=== PATIENT | female | born 1940 | race Caucasian/White ===

== ENCOUNTER 2019-06-19 12:43 | Emergency (ER) | payer OTHER ==
[2019-06-19 12:49] VITALS: BMI 42.4
--- NOTE | 2019-06-19 12:55 | PDOC ---
History of Present Illness - General Chief Complaint: Allergic Reaction Stated Complaint: ALLERGIC REACTION Time Seen by Provider: 06/19/19 12:54 History Source: Patient Exam Limitations: No Limitations - History of Present Illness Initial Comments: 78 yo F history GERD presents with lip swelling, hoarse voice, and rash after taking first dose of levaquin. She was recently treated for UTI, failed first treatment. She was given levaquin by PMD, which she had not taken in the past. Denies difficulty breathing, cp, difficulty swallowing. She is tolerating her secretions. Past History - Past Medical History Allergies/Adverse Reactions: Allergies Allergy/AdvReac Type Severity Reaction Status Date / Time amoxicillin trihydrate Allergy Rash Verified 06/19/19 12:48 [From Augmentin] potassium clavulanate Allergy Rash Verified 06/19/19 12:48 [From Augmentin] Home Medications: Ambulatory Orders Omeprazole [Prilosec (RX)] 20 mg PO DAILY 11/23/13 Anemia: No Asthma: No Cancer: No Cardiac Disorders: No CVA: No COPD: No CHF: No Dementia: No Diabetes: No GI Disorders: No Disorders: No HTN: Yes Hypercholesterolemia: Yes Liver Disease: No Seizures: No Thyroid Disease: No Other medical history: chronic uti - Suicide/Smoking/Psychosocial Hx Smoking History: Current every day smoker Have you smoked in the past 12 months: Yes Number of Cigarettes Smoked Daily: 1 Information on smoking cessation initiated: No 'Breaking Loose' booklet given: 09/22/14 Hx Alcohol Use: No Drug/Substance Use Hx: No Substance Use Type: None Hx Substance Use Treatment: No Review of Systems - Review of Systems Able to Perform ROS?: Yes Comments:: GENERAL/CONSTITUTIONAL: No fever or chills. No weakness. HEAD, EYES, EARS, NOSE AND THROAT: No change in vision. No ear pain or discharge. +Throat irritation. +Lower lip swelling CARDIOVASCULAR: No chest pain or shortness of breath. RESPIRATORY: No cough, wheezing, or hemoptysis. GASTROINTESTINAL: No nausea, vomiting, diarrhea or constipation. GENITOURINARY: No dysuria, frequency, or change in urination. MUSCULOSKELETAL: No joint or muscle swelling or pain. No neck or back pain. SKIN: No rash. NEUROLOGIC: No headache, vertigo, loss of consciousness, or change in strength/ sensation. ENDOCRINE: No increased thirst. No abnormal weight change. HEMATOLOGIC/LYMPHATIC: No anemia, easy bleeding, or history of blood clots. ALLERGIC/IMMUNOLOGIC: +Hives *Physical Exam - Vital Signs Last Vital Signs Temp Pulse Resp BP Pulse Ox 97.8 F 113 H 24 H 108/66 93 L 06/19/19 12:45 06/19/19 12:45 06/19/19 12:45 06/19/19 12:45 06/19/19 12:45 - Physical Exam Comments: GENERAL: Awake, alert, and fully oriented, in no acute distress HEAD: No signs of trauma EYES: PERRLA, EOMI, sclera anicteric, conjunctiva clear ENT: Auricles normal inspection, hearing grossly normal, nares patent, oropharynx clear without exudates. Moist mucosa. +Mild swelling of lower lip NECK: Normal ROM, supple, no lymphadenopathy, JVD, or masses LUNGS: Breath sounds equal, clear to auscultation bilaterally. No wheezes, and no crackles HEART: Regular rate and rhythm, normal S1 and S2, no murmurs, rubs or gallops ABDOMEN: Soft, nontender, normoactive bowel sounds. No guarding, no rebound. No masses EXTREMITIES: Normal range of motion, no edema. No clubbing or cyanosis. No cords, erythema, or tenderness NEUROLOGICAL: Cranial nerves II through XII grossly intact. Normal speech, normal gait. Motor and sensation intact SKIN: Warm, dry, normal turgor. +Few scattered patches of urticarial rash to limbs. ED Treatment Course - LABORATORY CBC & Chemistry Diagram: 06/19/19 13:11 06/19/19 13:11 Medical Decision Making - Medical Decision Making 06/19/19 13:49 Airway patent on exam. Likely allergic reaction to levaquin. Will give benadryl and steroids. Epinephrine not indicated at this time. Will monitor in the ED for improvement. 06/19/19 14:17 Pt reports improvement in rash and voice. Will cont to monitor. 06/19/19 16:27 Discussion with patient at bedside. Counseled her to stop the levaquin, as it appears to be the source of the reaction. Will have her f/u with her PMD for antibiotic change tomorrow, as they have prior culture. Will send UA/UCx in ED so they can call for comparison in 2 days if needed. *DC/Admit/Observation/Transfer Diagnosis at time of Disposition: Allergic reaction caused by a drug Qualifiers: Encounter type: initial encounter Qualified Code(s): T78.40XA - Allergy, unspecified, initial encounter - Discharge Dispostion Disposition: HOME Condition at time of disposition: Stable Decision to Admit order: No - Referrals Referrals: Phillip Gómez [Primary Care Provider] - - Patient Instructions Printed Discharge Instructions: DI for Adverse Drug Reaction -- Allergic - Post Discharge Activity
[2019-06-19] MEDS ORDERED: methylPREDNISolone NA SUCC 125 MG/2 ML VIAL IVPB ONE (12:58)
[2019-06-19] MEDS ORDERED: SODIUM CHLORIDE 1,000 ML IV STA (12:59)
[2019-06-19] MEDS ORDERED: methylPREDNISolone NA SUCC 125 MG/2 ML VIAL ONE (13:06)
[2019-06-19 13:23] LABS: BASO % 0.4 % (0-2.0); EOS % 1.2 % (0-4.5); HEMATOCRIT 35.6 % (32.4-45.2); LYMPH % 28.5 % (8-40); MCHC 33.7 g/dl (32.0-36.0); MEAN CELL VOLUME 97.9 fl (80-96); MEAN PLT VOLUME 8.7 fl (7.5-11.1); MONO % 9.4 % (3.8-10.2); NEUT % 60.5 % (42.8-82.8); PLATELET COUNT 252 K/MM3 (134-434); RBC 3.63 M/mm3 (3.60-5.2); RDW 14.1 % (11.6-15.6); WHITE BLOOD COUNT 6.9 K/mm3 (4.0-10.0)
[2019-06-19 13:51] LABS: ALBUMIN 3.7 g/dl (3.4-5.0); BILIRUBIN,TOTAL 0.4 mg/dL (0.2-1); BLOOD UREA NITROGEN 32.2 mg/dL (7-18); CALCIUM 10.6 mg/dL (8.5-10.1); CREATININE 1.4 mg/dL (0.55-1.3); POTASSIUM 4.3 mmol/L (3.5-5.1); TOT PROT 6.9 g/dl (6.4-8.2)
[2019-06-19 17:17] VITALS: BP 103/65; PULSE 80; TEMP 97.7
== END 2019-06-19 17:20 | disposition home or self-care (01) ==
LOC: JER 12:43
PROC: 3E0337Z Introduction of Electrolytic and Water Balance Substance into Peripheral Vein, Percutaneous Approach (ICD-10-PCS; principal; 2019-06-19)
PROC: 3E0333Z Introduction of Anti-inflammatory into Peripheral Vein, Percutaneous Approach (ICD-10-PCS; 2019-06-19)
PROC: 3E033GC Introduction of Other Therapeutic Substance into Peripheral Vein, Percutaneous Approach (ICD-10-PCS; 2019-06-19)
DX: L27.0 Generalized skin eruption due to drugs and medicaments taken internally (principal); T36.8X5A Adverse effect of other systemic antibiotics, initial encounter; Y92.038 Other place in apartment as the place of occurrence of the external cause
CPT/HCPCS: 36415; 80053; 85025; 87077; 87086; 96361; 96374; 96375; 99283-25; J7030

== ENCOUNTER 2019-10-03 17:17 | Inpatient (IN) | payer OTHER ==
--- NOTE | 2019-10-03 17:32 | PDOC ---
Rapid Medical Evaluation Medical Evaluation: Allergies Allergy/AdvReac Type Severity Reaction Status Date / Time amoxicillin trihydrate Allergy Rash Verified 06/19/19 12:48 [From Augmentin] potassium clavulanate Allergy Rash Verified 06/19/19 12:48 [From Augmentin] I have performed a brief in-person evaluation of this patient. The patient presents with a chief complaint of: generalized weakness and lightheaded for a few days; had flu-like sxs around [place]; went to urgent care last week and was noted to have low BP; she followed up 1/3 and got results today and was told her sodium was low (127); patient went to [facility] today and had repeat BP done which was low (80/60); denies cp, sob Pertinent physical exam findings: In NAD I have ordered the following: labs, EKG The patient will proceed to the ED for further evaluation. 10/03/19 17:28
--- NOTE | 2019-10-03 18:07 | PDOC ---
History of Present Illness - General Chief Complaint: Weakness Stated Complaint: WEAKNESS/EVALUATION Time Seen by Provider: 10/03/19 17:27 History Source: Patient Exam Limitations: No Limitations - History of Present Illness Initial Comments: 10/03/19 18:07 79yF w HTN HLD hypercalcemia presenting w malaise, poor appetite, pyuria, hypotension. Having generalized malaise, poor appetite - gagging with solid foods since 07/28/19 when pt had lower teeth removed without any dentures. Also endorsed pyuria for last 3mo, no workup/treatment by PCP. Last week went to urgent care, noted to have low BP and hyponatremia 127, stopped all HTN meds. Today went to [facility], repeat BP showed BP 80/60. Denies fever, nausea/vomiting , cough, chest pain/SOB, diarrhea/constipation. Allergy to augmentin is hives Past History - Past Medical History Allergies/Adverse Reactions: Allergies Allergy/AdvReac Type Severity Reaction Status Date / Time amoxicillin trihydrate Allergy Rash Verified 10/03/19 17:31 [From Augmentin] levofloxacin [From Levaquin] Allergy Verified 10/03/19 17:31 potassium clavulanate Allergy Rash Verified 10/03/19 17:31 [From Augmentin] Home Medications: Ambulatory Orders Atorvastatin Calcium 20 mg PO DAILY 10/03/19 Ergocalciferol (Vitamin D2) [Vitamin D2] 2,000 unit PO DAILY 10/03/19 Anemia: No Asthma: No Cancer: No Cardiac Disorders: No CVA: No COPD: No CHF: No Dementia: No Diabetes: No GI Disorders: No Disorders: No HTN: Yes Hypercholesterolemia: Yes Liver Disease: No Seizures: No Thyroid Disease: No - Psycho Social/Smoking Cessation Hx Smoking History: Former smoker Have you smoked in the past 12 months: No Number of Cigarettes Smoked Daily: 1 If you are a former smoker, when did you quit?: 3 WEEKS AGO Information on smoking cessation initiated: No 'Breaking Loose' booklet given: 09/22/14 Hx Alcohol Use: No Drug/Substance Use Hx: No Substance Use Type: None Hx Substance Use Treatment: No Review of Systems - Review of Systems Constitutional: No: Chills, Fever HEENTM: No: Eye Pain, Nose Pain, Nose Congestion, Throat Pain, Mouth Pain Respiratory: No: Cough, Shortness of Breath Cardiac (ROS): No: Chest Pain, Palpitations, Syncope ABD/GI: No: Abdominal Distended, Constipated, Diarrhea, Nausea, Vomiting : Yes: Burning, Hematuria. No: Dysuria, Discharge Musculoskeletal: No: Back Pain, Joint Pain, Joint Stiffness Integumentary: No: Bruising, Flushing, Lesions Neurological: No: Headache, Seizure, Tingling Psychiatric: No: Anxiety, Depression, Stressors Endocrine: No: Excessive Sweating, Flushing, Intolerance to Cold, Intolerance to Heat Hematologic/Lymphatic: No: Anemia, Blood Clots *Physical Exam - Vital Signs Last Vital Signs Temp Pulse Resp BP Pulse Ox 98.3 F 90 16 137/62 98 10/03/19 17:20 10/03/19 17:20 10/03/19 17:20 10/03/19 17:20 10/03/19 17:20 - Physical Exam General Appearance: Yes: Nourished, Appropriately Dressed, Mild Distress HEENT: positive: EOMI, MATTY, Normal Voice, Hearing Grossly Normal. negative: Scleral Icterus (R), Scleral Icterus (L), Nasal Congestion, Rhinorrhea Respiratory/Chest: positive: Lungs Clear, Normal Breath Sounds. negative: Chest Tender, Respiratory Distress, Crackles, Rales, Rhonchi, Stridor, Wheezing Cardiovascular: positive: Regular Rhythm, Regular Rate, S1, S2. negative: Edema , Murmur Gastrointestinal/Abdominal: positive: Normal Bowel Sounds, Flat, Soft. negative : Tender, Organomegaly Musculoskeletal: negative: CVA Tenderness (R), CVA Tenderness (L) Extremity: positive: Delayed Capillary Refill Integumentary: positive: Normal Color, Dry Neurologic: positive: Fully Oriented, Alert, Normal Response, Responsive. negative: Sensory Deficit, Confused, Disoriented ED Treatment Course - LABORATORY CBC & Chemistry Diagram: 10/03/19 18:03 10/03/19 18:03 Medical Decision Making - Medical Decision Making 10/03/19 19:11 EKG NSR, L axis deviation, HR 96, QTc 401, no ST changes --- 79yF w HTN HLD hypercalcemia presenting w 3mo generalized malaise, poor appetite w solid foods, pyuria 2/2 UTI. Also hypovolemic hyponatremia Na 121. Pt is mildly dehydrated despite tolerating PO fluids. Cr 1.6 (baseline 1.4 05/2019), normal BP 137/67. Low concern for PNA (clear lung sounds) vs ACS (NSR EKG, neg trop) Given 1L NS, rocephin Admitted m/s Dr Alba for hyponatremia, UTI Discharge - Discharge Information Problems reviewed: Yes Clinical Impression/Diagnosis: Hyponatremia UTI (urinary tract infection) Qualifiers: Urinary tract infection type: acute cystitis Hematuria presence: without hematuria Qualified Code(s): N30.00 - Acute cystitis without hematuria - Follow up/Referral Referrals: ON STAFF,NOT [Primary Care Provider] - - Patient Discharge Instructions - Post Discharge Activity
[2019-10-03 18:18] LABS: BASO % 0.4 % (0-2.0); EOS % 0.9 % (0-4.5); HEMATOCRIT 33.6 % (32.4-45.2); HEMOGLOBIN 11.3 GM/dL (10.7-15.3); LYMPH % 11.2 % (8-40); MCH 31.2 pg (25.7-33.7); MCHC 33.5 g/dl (32.0-36.0); MEAN CELL VOLUME 92.9 fl (80-96); MEAN PLT VOLUME 7.5 fl (7.5-11.1); MONO % 10.9 % (3.8-10.2); NEUT % 76.6 % (42.8-82.8); PLATELET COUNT 298 K/MM3 (134-434); RBC 3.62 M/mm3 (3.60-5.2); RDW 13.6 % (11.6-15.6); WHITE BLOOD COUNT 10.6 K/mm3 (4.0-10.0)
[2019-10-03 18:28] LABS: EPI CELLS 2.9 /HPF (0-5/HPF); HYALINE CASTS 4 /lpf (0-8); PH,URINE 5.5 (5.0-8.0); URINE APPEARANCE CLOUDY; URINE BACTERIA 97.5 /hpf (NEGATIVE); URINE BILIRUBIN NEGATIVE (NEGATIVE); URINE COLOR YELLOW; URINE GLUCOSE (UA) NEGATIVE (NEGATIVE); URINE KETONE NEGATIVE (NEGATIVE); URINE LEUK ESTERASE 2+ (NEGATIVE); URINE NITRITE NEGATIVE (NEGATIVE); URINE PROTEIN 1+ (NEGATIVE); URINE RBC 1 /hpf (0-4); URINE UROBILINOGEN 0.2 mg/dL (0.2-1.0); URINE WBC 41 /hpf (0-5)
[2019-10-03 18:48] LABS: ALBUMIN 3.3 g/dl (3.4-5.0); BILIRUBIN,TOTAL 0.3 mg/dL (0.2-1); BLOOD UREA NITROGEN 33.8 mg/dL (7-18); CALCIUM 9.9 mg/dL (8.5-10.1); CREATININE 1.6 mg/dL (0.55-1.3); MAGNESIUM 1.1 mg/dL (1.8-2.4); POTASSIUM 4.3 mmol/L (3.5-5.1); TOT PROT 6.9 g/dl (6.4-8.2)
[2019-10-03] MEDS ORDERED: SODIUM CHLORIDE 0.9% 500 ML INFUS.BAG IV ONE (18:52)
[2019-10-03] MEDS ORDERED: CEFTRIAXONE 1,000 MG in DEXTROSE 5%-WATER - 50 ML IVPB ONE (19:03)
[2019-10-03] MEDS ORDERED: CEFTRIAXONE 1 GM/50 ML BAG ONE (19:39)
--- NOTE | 2019-10-03 20:03 | PN ---
Teaching Attending Note Name of Resident: Marlin Correia ATTENDING PHYSICIAN STATEMENT I saw and evaluated the patient. I reviewed the resident's note and discussed the case with the resident. I agree with the resident's findings and plan as documented. SUBJECTIVE: Patient is a 79 year old woman with a PMH of HTN, GERD, HLD, ?Atrophic kidney, Tobacco use and Hypercalcemia presenting with malaise, poor appetite, pyuria and hypotension. Having generalized malaise, poor appetite - gagging with solid foods since 07/28/19 when patient had lower teeth removed without any dentures. Also has had pyuria for last 3 months - ?no workup/treatment by PCP. Had been advised to drink lots of water for hypercalcemia by her analytics consultant. Being worked up for hypercalcemia/hyperparathyroidism. Was also on Lisinopril/HCTZ. Last week went to an Urgent [facility] and noted to have low BP and hyponatremia 127 - all antihypertensive medications were stopped. Today she went to [facility], repeat BP showed BP 80/60. Denies fever, nausea, vomiting, cough, chest pain, SOB, diarrhea or constipation. Allergy to augmentin is hives. No recent travel or sick contacts. Denies alcohol or illicit drug use. OBJECTIVE: Alert Vital Signs Period Temp Pulse Resp BP Sys/Giron Pulse Ox Last 24 Hr 98.3 F 90 16 137/62 98 HEENT: No Jaundice, eye redness or discharge, PERRLA, EOMI. Normocephalic, atraumatic. External ears are normal and hearing is grossly intact. No nasal discharge. Neck: Supple, nontender. No palpable adenopathy or thyromegaly. No JVD Chest: Good effort. Clear to auscultation and percussion. Heart: Regular. No S3, rub or murmur Abdomen: Not distended, soft, nontender and no HSM. No rebound or guarding. Normal bowel sounds. Ext: Peripheral pulses intact. No leg edema. Skin: Warm and dry. No petechiae, rash or ecchymosis. Neuro: Alert. Oriented x3. CN 2-12 grossly intact. Sensation grossly intact in all four extremities and DTR are symmetric. Psych: Appropriate mood and affect. Good insight. Home Medications Medication Instructions Recorded Atorvastatin Calcium 20 mg PO DAILY 10/03/19 Ergocalciferol (Vitamin D2) 2,000 unit PO DAILY 10/03/19 [Vitamin D2] Abnormal Lab Results 10/03/19 10/03/19 10/03/19 18:03 18:03 18:03 WBC 10.6 H Absolute Neuts (auto) 8.1 H Monocytes % 10.9 H Sodium 121 L Chloride 91 L Carbon Dioxide 18 L BUN 33.8 H Creatinine 1.6 H Random Glucose 121 H Magnesium 1.1 L Albumin 3.3 L Ur Specific Pierce 1.006 L Urine Protein 1+ H Urine Blood 1+ H Ur Leukocyte Esterase 2+ H ASSESSMENT AND PLAN: 1. UTI/Hyponatremia - Being treated with IV Aztreonam for UTI pending culture report. Hyponatremia likely partly due to continued ingestion of lots of free water and recent poor solute intake - thus not enough solute for obligatory free water excretion. HCTZ also likely contributed. Will hydrate slowly with IV NS and monitor serum sodium q 4 hours to avoid a rapid rise in serum sodium. Get records from her PCP/analytics consultant to ascertain extent of workup for her hypercalcemia/?hyperparathroidism - -?has she had a parathyroid Sestamibi scan. Consult endocrinology, ID. Consult urology for ?cystoscopy in view of frequent UTIs and pyuria. Will treat with IV MgSO4 for severe hypomagnesemia and check phosphate level and get CXR stat. EKG shows NSR, LAE, anterior and inferior infarct of undetermined age - will repeat EKG and trend troponin. Will continue comprehensive care for all of patients comorbid conditions. 2. Hypoalbuminemia - Possibly due to combined effects of proteinuria, malnutrition and inflammation associated with comorbid chronic conditions. Will ensure adequate dietary protein intake and also consult machine baster. 3. Tobacco Use Counseled on risks associated with tobacco use. We will provide patient all the necessary assistance to facilitate smoking cessation and prescribe Nicotine patch. 4. CKD? - Has risk factors for CKD as well as an ?atrophic kidney. Recent poor oral intake as well bout of hypotension may have exacerbated azotemia. Will get kidney sonogram, phosphate, PTH, urine protein/creatinine ratio, hydrate and monitor urine output. Will consult nephrology and avoid nephrotoxic agents such as NSAIDS, aminoglycosides, contrast dyes and certain Alternative medicine products. 5. Morbid Obesity Counseled on the risks associated with morbid obesity. Will provide patient all the necessary assistance, counseling and positive reinforcement to facilitate weight loss. Consult machine baster. 6. Hypertension - Hold antihypertensive drugs for now. Avoid thiazides. Restart suitable outpatient antihypertensive drugs when clinically appropriate. Revise regimen to ensure [id number] excellent BP control and school counselor patient on the injurious effects of uncontrolled hypertension. Nonpharmacologic measures to control hypertension like weight loss, salt restriction and exercise discussed. Importance of adherence to treatment regimen and attainment of normotension emphasized. 7. DVT prophylaxis - Heparin 5000u sq tid. 8. Advance directives - Full code
--- NOTE | 2019-10-03 20:57 | HP ---
CHIEF COMPLAINT: generalized malaise and recurrent UTIs PCP: Dr Gómez HISTORY OF PRESENT ILLNESS: 79 y/o woman with a PMH of HTN, GERD, HLD, Tobacco use and Hypercalcemia 2/2 hyperparathyroidism presents to ED with malaise, poor appetite, pyuria with urinary symptoms. According to the patient she has been having pyuria associated with dyruria, frequency and urgency since the summer time. She has received treatment 4x-5x for UTI without successful recovery. She finally saw a urologist Dr Richard De La Torre in June, who performed a cystoscopy with unclear findings. She further endorsed recurrence of urinary symptoms as well poor urine output despite her increased water intake recently.Since getting her bottom front teeth removed a couple of months ago, she endorsed poor oral intake with a diet consisting mainly of puree food such as applesauce and yogurt. 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 Today she went to [facility], repeat BP showed BP 80/60 and was told to go the emergency room. Denies fever, vomiting, cough, chest pain, SOB, diarrhea. Allergy to augmentin is hives. No recent travel or sick contacts. Denies alcohol or illicit drug use. ON lisinopril-HTZD combo pill for HTN ER course was notable for: (1) CBC with leukocytosis 10.6, CMP with BUN/Cr 33.8/1.6, mag 1.1, albumin 3.3 (2) UA + with specific gravity 1.006. EKG with NSR, low voltage QRS (3) NS bolus and rocephin. Recent Travel: none PAST MEDICAL HISTORY: as above PAST SURGICAL HISTORY: C section, L arm surgery with metal implant Social History: Smokin PPD 46 yrs quit 1 month Alcohol: social drinker Drugs: denies Allergies amoxicillin trihydrate [From Augmentin] Allergy (Verified 10/03/19 17:31) Rash levofloxacin [From Levaquin] Allergy (Verified 10/03/19 17:31) potassium clavulanate [From Augmentin] Allergy (Verified 10/03/19 17:31) Rash HOME MEDICATIONS: Home Medications Medication Instructions Recorded Atorvastatin Calcium 20 mg PO DAILY 10/03/19 Ergocalciferol (Vitamin D2) 2,000 unit PO DAILY 10/03/19 [Vitamin D2] REVIEW OF SYSTEMS CONSTITUTIONAL: generalized weakness, malaise, loss of appetite Absent: fever, chills, diaphoresis, weight change HEENT: Absent: rhinorrhea, nasal congestion, throat pain, throat swelling, difficulty swallowing, mouth swelling, ear pain, eye pain, visual changes CARDIOVASCULAR: Absent: chest pain, syncope, palpitations, irregular heart rate, lightheadedness , peripheral edema RESPIRATORY: Absent: cough, shortness of breath, dyspnea with exertion, orthopnea, wheezing, stridor, hemoptysis GASTROINTESTINAL: nausea Absent: abdominal pain, abdominal distension, vomiting, diarrhea, constipation, melena, hematochezia GENITOURINARY: dysuria, frequency, urgency Absent: hesitancy, hematuria, flank pain, genital pain MUSCULOSKELETAL: Absent: myalgia, arthralgia, joint swelling, back pain, neck pain SKIN: Absent: rash, itching, pallor HEMATOLOGIC/IMMUNOLOGIC: Absent: easy bleeding, easy bruising, lymphadenopathy, frequent infections ENDOCRINE: Absent: unexplained weight gain, unexplained weight loss, heat intolerance, cold intolerance NEUROLOGIC: Absent: headache, focal weakness or paresthesias, dizziness, unsteady gait, seizure, mental status changes, bladder or bowel incontinence PSYCHIATRIC: Absent: anxiety, depression, suicidal or homicidal ideation, hallucinations. PHYSICAL EXAMINATION Vital Signs - 24 hr 10/03/19 17:20 Temperature 98.3 F Pulse Rate 90 Respiratory 16 Rate Blood Pressure 137/62 O2 Sat by Pulse 98 Oximetry (%) GENERAL: Awake, alert, and fully oriented, in no acute distress. HEAD: Normal with no signs of trauma. EYES: Pupils equal, round and reactive to light, extraocular movements intact, sclera anicteric, conjunctiva clear. No lid lag. EARS, NOSE, THROAT: Ears normal, nares patent, oropharynx clear without exudates. Moist mucous membranes. NECK: Normal range of motion, supple without lymphadenopathy, JVD, or masses. LUNGS: Breath sounds equal, clear to auscultation bilaterally. No wheezes, and no crackles. No accessory muscle use. HEART: Regular rate and rhythm, normal S1 and S2 without murmur, rub or gallop. ABDOMEN: Soft, nontender, not distended, normoactive bowel sounds, no guarding, no rebound, no masses. No hepatomegaly or splenomegaly. MUSCULOSKELETAL: Normal range of motion at all joints. No bony deformities or tenderness. No CVA tenderness. UPPER EXTREMITIES: 2+ pulses, warm, well-perfused. No cyanosis. No clubbing. No peripheral edema. LOWER EXTREMITIES: 2+ pulses, warm, well-perfused. No calf tenderness. trace edema. NEUROLOGICAL: Cranial nerves II-XII intact. Normal speech. motor 5/5 in all muscle groups and sensation intact PSYCHIATRIC: Cooperative. Good eye contact. Appropriate mood and affect. SKIN: Warm, dry, normal turgor, no rashes or lesions noted, normal capillary refill. Laboratory Results - last 24 hr 10/03/19 10/03/19 10/03/19 18:03 18:03 18:03 WBC 10.6 H RBC 3.62 Hgb 11.3 Hct 33.6 MCV 92.9 MCH 31.2 MCHC 33.5 RDW 13.6 Plt Count 298 MPV 7.5 D Absolute Neuts (auto) 8.1 H Neutrophils % 76.6 D Lymphocytes % 11.2 D Monocytes % 10.9 H Eosinophils % 0.9 Basophils % 0.4 Nucleated RBC % 0 Sodium 121 L Potassium 4.3 Chloride 91 L Carbon Dioxide 18 L Anion Gap 11 BUN 33.8 H Creatinine 1.6 H Est GFR (CKD-EPI)AfAm 35.15 Est GFR (CKD-EPI)NonAf 30.33 Random Glucose 121 H Calcium 9.9 Magnesium 1.1 L Total Bilirubin 0.3 AST 15 ALT 20 Alkaline Phosphatase 92 Troponin I < 0.02 Total Protein 6.9 Albumin 3.3 L Urine Color Urine Appearance Urine pH Ur Specific [place] Urine Protein Urine Glucose (UA) Urine Ketones Urine Blood Urine Nitrite Urine Bilirubin Urine Urobilinogen Ur Leukocyte Esterase Urine WBC (Auto) Urine RBC (Auto) Urine Casts (Auto) U Epithel Cells (Auto) Urine Bacteria (Auto) 10/03/19 18:03 WBC RBC Hgb Hct MCV MCH MCHC RDW Plt Count MPV Absolute Neuts (auto) Neutrophils % Lymphocytes % Monocytes % Eosinophils % Basophils % Nucleated RBC % Sodium Potassium Chloride Carbon Dioxide Anion Gap BUN Creatinine Est GFR (CKD-EPI)AfAm Est GFR (CKD-EPI)NonAf Random Glucose Calcium Magnesium Total Bilirubin AST ALT Alkaline Phosphatase Troponin I Total Protein Albumin Urine Color Yellow Urine Appearance Cloudy Urine pH 5.5 Ur Specific [place] 1.006 L Urine Protein 1+ H Urine Glucose (UA) Negative Urine Ketones Negative Urine Blood 1+ H Urine Nitrite Negative Urine Bilirubin Negative Urine Urobilinogen 0.2 Ur Leukocyte Esterase 2+ H Urine WBC (Auto) 41 Urine RBC (Auto) 1 Urine Casts (Auto) 4 U Epithel Cells (Auto) 2.9 Urine Bacteria (Auto) 97.5 ASSESSMENT/PLAN: 79 y/o woman with a PMH of HTN, GERD, HLD, Tobacco use and Hypercalcemia 2/2 hyperparathyroidism presents to ED with malaise, poor appetite, pyuria with urinary symptoms. admitted for recurrent UTI and symptomatic hyponatremia UTI +symptoms, and + UA recurrent UTIs since summer time. saw Urologist; cystocopy with unknown results in ED received Rocephin will continue with aztreonam 1gm Q8h ID Dr Yeung consulted Urology Dr Yepez consult monitor urine output f/u urine culture for sensitivity and speciation Hyponatremia in the setting of poor oral intake and excessive free water intake in the past 2 months fatigue, weakness, nausea and malaise NS bolus in ED will continue with IV NS monitor sodium with BMP q4h to avoid a rapid rise in serum sodium confirm meds with pharmacy Hypomagnesemia most likely due to poor oral intake replete with IV MgSO4 for severe hypomagnesemia check phosphate level f/u morning mag level Hypoalbuminemia most likely due to poor oral intake and chronic comorbidities consider boost/ensure consult washer off puree diet due to dentition issue ?CKD Has risk factors for CKD. renal US phosphate level PTH urine protein/creatinine ratio hydrate and monitor urine output nephrology Dr Mayer consult avoid nephrotoxic agents HTN hold BP home meds due to HTZD combo pt currently stable if elevated consider norvasc 5 or lisinopril alone HLD cont lipitor DVT hep subQ Admit to med-surge Visit type - Emergency Visit Emergency Visit: Yes ED Registration Date: 10/03/19 Care time: The patient presented to the Emergency Department on the above date and was hospitalized for further evaluation of their emergent condition. - New Patient This patient is new to me today: No - Critical Care Critical Care patient: No ATTENDING PHYSICIAN STATEMENT I saw and evaluated the patient. I reviewed the resident's note and discussed the case with the resident. I agree with the resident's findings and plan as documented. SUBJECTIVE: OBJECTIVE: ASSESSMENT AND PLAN:
[2019-10-03] MEDS ORDERED: ONDANSETRON 4 MG/2 ML VIAL IVPUSH PRN (22:00)
[2019-10-03] MEDS ORDERED: ACETAMINOPHEN 325 MG TABLET (FP) PO PRN (22:11)
[2019-10-03] MEDS ORDERED: DEXTROSE 5%-NORMAL SALINE 1,000 ML IV SCH (22:15)
[2019-10-03] MEDS ORDERED: MAGNESIUM SULF 50% (8.12 MEQ/2 ML-1 GM VIAL) IVPB ONE (22:20)
--- NOTE | 2019-10-03 22:31 | PDOC ---
Documentation entered by Richard Shah SCRIBE, acting as scribe for Vera Montejo MD. Vera Montejo MD: This documentation has been prepared by the Alyssa aguilar Nirvannie, SCRIBE, under my direction and personally reviewed by me in its entirety. I confirm that the documentation accurately reflects all work, treatment, procedures, and medical decision making performed by me. Attending Attestation - Resident Resident Name: Charles Mcdaniel - ED Attending Attestation I have performed the following: I have examined & evaluated the patient, The case was reviewed & discussed with the resident, I agree w/resident's findings & plan, Exceptions are as noted - HPI HPI: 10/03/19 20:16 The patient is a 79 year old female, with a significant past medical history of HTN, HLD, and hypercalcemia, who presents to the emergency department with malaise ,weight loss since late June She denies recent chest pain or shortness of breath. 10/04/19 00:43 10/04/19 00:44 - Physicial Exam PE: 10/04/19 00:45 Obese 79-year-old female is ambulating in the ER complaining of general malaise Head normocephalic atraumatic Neck was supple Lungs are clear to auscultation bilaterally CVS regular rate rhythm S1-S2 Abdomen protuberant but nontender to palpation Extremities no deformities, no erythema, no clubbing Skin warm and dry Neuro alert and oriented x3 with no gross focal neuro deficits - Medical Decision Making 10/03/19 21:54 79-year-old female referred to the emergency room by her primary care doctor for weeks of failure to thrive, malaise, dysuria She was found to have a urinary tract infection Review of her labs shows I hyponatremia, renal insufficiency and hyper glycemia 10/04/19 00:46 pt admitted med/surg
[2019-10-03] MEDS ORDERED: HEPARIN NA (PORCINE) 5,000 UNITS/ML 1ML VIAL ONE (23:54)
[2019-10-03] MEDS ORDERED: ONDANSETRON 4 MG/2 ML VIAL ONE (23:54)
[2019-10-03] MEDS ORDERED: MAGNESIUM 1GM/D5W - 2 GM/200 ML IVPB IVPB ONE (23:55)
[2019-10-04] MEDS: HEPARIN NA (PORCINE) 5,000 UNITS/ML 1ML VIAL SQ SCH ×4 (00:26→21:57)
[2019-10-04] MEDS: SODIUM CHLORIDE 1,000 ML IV SCH ×3 (00:26→21:58)
[2019-10-04] MEDS ORDERED: MAGNESIUM SULF 50% (8.12 MEQ/2 ML-1 GM VIAL) IVPB ONE (01:15)
[2019-10-04 02:04] LABS: BLOOD UREA NITROGEN 29.4 mg/dL (7-18); CALCIUM 9.2 mg/dL (8.5-10.1); CREATININE 1.3 mg/dL (0.55-1.3); POTASSIUM 4.1 mmol/L (3.5-5.1)
[2019-10-04] MEDS ORDERED: AZTREONAM 1 GM VIAL (RESTRICTED TO ID) ONE ×2 (02:31→09:09)
[2019-10-04] MEDS ORDERED: DEXTROSE 5%-WATER - 50 ML IVPB ONE ×2 (02:31→09:10)
[2019-10-04] MEDS: AZTREONAM 1 GM in DEXTROSE 5%-WATER - 50 ML IVPB SCH ×2 (02:53→09:30)
[2019-10-04 07:28] LABS: BASO % 0.5 % (0-2.0); EOS % 1.1 % (0-4.5); HEMATOCRIT 29.5 % (32.4-45.2); HEMOGLOBIN 10.1 GM/dL (10.7-15.3); LYMPH % 18.1 % (8-40); MCH 31.5 pg (25.7-33.7); MCHC 34.3 g/dl (32.0-36.0); MEAN CELL VOLUME 91.9 fl (80-96); MEAN PLT VOLUME 7.7 fl (7.5-11.1); MONO % 14.5 % (3.8-10.2); NEUT % 65.8 % (42.8-82.8); PLATELET COUNT 254 K/MM3 (134-434); RBC 3.21 M/mm3 (3.60-5.2); RDW 13.5 % (11.6-15.6); WHITE BLOOD COUNT 7.2 K/mm3 (4.0-10.0)
[2019-10-04 07:54] LABS: ALBUMIN 2.9 g/dl (3.4-5.0); BILIRUBIN,TOTAL 0.3 mg/dL (0.2-1); BLOOD UREA NITROGEN 28.5 mg/dL (7-18); CALCIUM 9.6 mg/dL (8.5-10.1); CREATININE 1.3 mg/dL (0.55-1.3); MAGNESIUM 2.5 mg/dL (1.8-2.4); PHOSPHOROUS 2.2 mg/dL (2.5-4.9); POTASSIUM 3.8 mmol/L (3.5-5.1)
[2019-10-04 10:36] LABS: BLOOD UREA NITROGEN 27.4 mg/dL (7-18); CALCIUM 9.6 mg/dL (8.5-10.1); CREATININE 1.4 mg/dL (0.55-1.3); POTASSIUM 4.1 mmol/L (3.5-5.1)
--- NOTE | 2019-10-04 12:58 | EKG ---
Test Reason : Blood Pressure : / mmHG Vent. Rate : 096 BPM Atrial Rate : 096 BPM P-R Int : 204 ms QRS Dur : 086 ms QT Int : 318 ms P-R-T Axes : 071 -50 044 degrees QTc Int : 401 ms NORMAL SINUS RHYTHM LEFT AXIS DEVIATION LOW VOLTAGE QRS INFERIOR INFARCT , AGE UNDETERMINED POSSIBLE ANTEROLATERAL INFARCT , AGE UNDETERMINED ABNORMAL ECG NO PREVIOUS ECGS AVAILABLE Confirmed by MD Malik Daniel ([id number]) on 10/04/2019 12:58:17 PM Referred By: Confirmed By:Sorin Malik MD
[2019-10-04 14:16] LABS: BLOOD UREA NITROGEN 26.8 mg/dL (7-18); CALCIUM 9.5 mg/dL (8.5-10.1); CREATININE 1.3 mg/dL (0.55-1.3); POTASSIUM 3.7 mmol/L (3.5-5.1)
--- NOTE | 2019-10-04 14:31 | CONSULT ---
Consultation: REQUESTING PROVIDER: Dr. Pryor CONSULT REQUEST: We have been asked to medically evaluate this patient for JILLIAN, hyponatremia. HISTORY OF PRESENT ILLNESS: Patient is a 79 year old female with past medical history of HTN, GERD, HLD, hypercalcemia 2/2 hyperparathyroidism, presented to the ED due to generalized weakness, decreased appetite and urinary symptoms. Patient reported having urinary symptoms including dysuria, frequency and urgency for a few months, for which she has been treated for a urinary tract infection multiple times. Patient reported following up with a urologist, for which a cystoscopy was done , but patient unsure of the results. Few weeks prior, patient had her bottom teeth removed which was not replaced by dentures, which resulted to patient's decreased oral intake. Patient also followed up with her doctor recently for elevated calcium and was told that she should increase her water intake and that her "glands need to be removed". Last week, at the urgent care clinic, patient was found to be hypotensive and hyponatremic, for which she was advised to hold her BP meds, including Lisinopril/HCTZ. Yesterday, patient returned to urgent care for which she was still found to be hypotensive and was advised to come to the ED. Patient denies any fever, chills, headache, chest pain, SOB, palpitations, abdominal pain, diarrhea. Past Medical History: HTN, GERD, HLD, hypercalcemia 2/2 hyperparathyroidism Past Surgical History: , L arm surgery with metal implant Social History: Smokin ppd >40 years, quit 1 month ago Alcohol: occasional EtOH use Illicit drugs: denies Allergies: Amoxicillin, Levofloxacin, potassium clavulanate REVIEW OF SYSTEMS: CONSTITUTIONAL: generalized weakness, decreased appetite Absent: fever, chills, diaphoresis, weight change HEENT: Absent: rhinorrhea, nasal congestion, throat pain, throat swelling, difficulty swallowing, mouth swelling, ear pain, eye pain, visual changes CARDIOVASCULAR: Absent: chest pain, syncope, palpitations, irregular heart rate, lightheadedness , peripheral edema RESPIRATORY: Absent: cough, shortness of breath, dyspnea with exertion, orthopnea, wheezing, stridor, hemoptysis GASTROINTESTINAL: Absent: abdominal pain, abdominal distension, nausea, vomiting, diarrhea, constipation, melena, hematochezia GENITOURINARY: dysuria, frequency, urgency Absent: hesitancy, hematuria, flank pain, genital pain MUSCULOSKELETAL: Absent: myalgia, arthralgia, joint swelling, back pain, neck pain SKIN: Absent: rash, itching, pallor HEMATOLOGIC/IMMUNOLOGIC: Absent: easy bleeding, easy bruising, lymphadenopathy, frequent infections ENDOCRINE: Absent: unexplained weight gain, unexplained weight loss, heat intolerance, cold intolerance NEUROLOGIC: Absent: headache, focal weakness or paresthesias, dizziness, unsteady gait, seizure, mental status changes, bladder or bowel incontinence PSYCHIATRIC: Absent: anxiety, depression, suicidal or homicidal ideation, hallucinations. PHYSICAL EXAMINATION Vital Signs - 24 hr 10/03/19 10/04/19 10/04/19 17:20 01:24 02:00 Temperature 98.3 F 97.6 F 97.7 F Pulse Rate 90 80 Pulse Rate [ 73 Right Radial] Respiratory 16 20 18 Rate Blood Pressure 137/62 116/69 Blood Pressure 106/63 [Left Arm] O2 Sat by Pulse 98 97 97 Oximetry (%) 10/04/19 10/04/19 10/04/19 06:08 09:00 12:00 Temperature 97.6 F 97.7 F Pulse Rate 78 87 Pulse Rate [ Right Radial] Respiratory 18 18 19 Rate Blood Pressure 115/68 97/56 L Blood Pressure [Left Arm] O2 Sat by Pulse 97 Oximetry (%) GENERAL: Awake, alert, and fully oriented, in no acute distress. HEAD: Normal with no signs of trauma. EYES: Pupils equal, round and reactive to light, extraocular movements intact, sclera anicteric, conjunctiva clear. No lid lag. EARS, NOSE, THROAT: Ears normal, nares patent, oropharynx clear without exudates. Moist mucous membranes. NECK: Normal range of motion, supple without lymphadenopathy, JVD, or masses. LUNGS: Breath sounds equal, clear to auscultation bilaterally. No wheezes, and no crackles. No accessory muscle use. HEART: Regular rate and rhythm, normal S1 and S2 without murmur, rub or gallop. ABDOMEN: Soft, nontender, not distended, normoactive bowel sounds, no guarding, no rebound, no masses. No hepatomegaly or splenomegaly. MUSCULOSKELETAL: Normal range of motion at all joints. No bony deformities or tenderness. No CVA tenderness. UPPER EXTREMITIES: 2+ pulses, warm, well-perfused. No cyanosis. No clubbing. Cap refill <2 seconds. No peripheral edema. LOWER EXTREMITIES: 2+ pulses, warm, well-perfused. No calf tenderness. No peripheral edema. NEUROLOGICAL: Cranial nerves II-XII intact. Normal speech. Normal gait. PSYCHIATRIC: Cooperative. Good eye contact. Appropriate mood and affect. SKIN: Warm, dry, normal turgor, no rashes or lesions noted. Laboratory Results - last 24 hr 10/03/19 10/03/19 10/03/19 18:03 18:03 18:03 WBC 10.6 H RBC 3.62 Hgb 11.3 Hct 33.6 MCV 92.9 MCH 31.2 MCHC 33.5 RDW 13.6 Plt Count 298 MPV 7.5 D Absolute Neuts (auto) 8.1 H Neutrophils % 76.6 D Lymphocytes % 11.2 D Monocytes % 10.9 H Eosinophils % 0.9 Basophils % 0.4 Nucleated RBC % 0 Sodium 121 L Potassium 4.3 Chloride 91 L Carbon Dioxide 18 L Anion Gap 11 BUN 33.8 H Creatinine 1.6 H Est GFR (CKD-EPI)AfAm 35.15 Est GFR (CKD-EPI)NonAf 30.33 Random Glucose 121 H Serum Osmolality Calcium 9.9 Phosphorus Magnesium 1.1 L Total Bilirubin 0.3 AST 15 ALT 20 Alkaline Phosphatase 92 Troponin I < 0.02 Total Protein 6.9 Albumin 3.3 L TSH Urine Color Urine Appearance Urine pH Ur Specific [place] Urine Protein Urine Glucose (UA) Urine Ketones Urine Blood Urine Nitrite Urine Bilirubin Urine Urobilinogen Ur Leukocyte Esterase Urine WBC (Auto) Urine RBC (Auto) Urine Casts (Auto) U Epithel Cells (Auto) Urine Bacteria (Auto) U Random Total Protein Ur Random Sodium Urine Creatinine Protein/Creatinin Ratio 10/03/19 10/04/19 10/04/19 18:03 01:15 02:55 WBC RBC Hgb Hct MCV MCH MCHC RDW Plt Count MPV Absolute Neuts (auto) Neutrophils % Lymphocytes % Monocytes % Eosinophils % Basophils % Nucleated RBC % Sodium 124 L Potassium 4.1 Chloride 96 L Carbon Dioxide 17 L Anion Gap 11 BUN 29.4 H Creatinine 1.3 Est GFR (CKD-EPI)AfAm 45.19 Est GFR (CKD-EPI)NonAf 38.99 Random Glucose 121 H Serum Osmolality Calcium 9.2 Phosphorus Magnesium Total Bilirubin AST ALT Alkaline Phosphatase Troponin I Total Protein Albumin TSH Urine Color Yellow Urine Appearance Cloudy Urine pH 5.5 Ur Specific [place] 1.006 L Urine Protein 1+ H Urine Glucose (UA) Negative Urine Ketones Negative Urine Blood 1+ H Urine Nitrite Negative Urine Bilirubin Negative Urine Urobilinogen 0.2 Ur Leukocyte Esterase 2+ H Urine WBC (Auto) 41 Urine RBC (Auto) 1 Urine Casts (Auto) 4 U Epithel Cells (Auto) 2.9 Urine Bacteria (Auto) 97.5 U Random Total Protein 43.7 H Ur Random Sodium Urine Creatinine 28.0 L Protein/Creatinin Ratio 1.6 10/04/19 10/04/19 10/04/19 06:20 06:20 09:08 WBC 7.2 RBC 3.21 L Hgb 10.1 L Hct 29.5 L MCV 91.9 MCH 31.5 MCHC 34.3 RDW 13.5 Plt Count 254 MPV 7.7 Absolute Neuts (auto) 4.7 Neutrophils % 65.8 Lymphocytes % 18.1 D Monocytes % 14.5 H Eosinophils % 1.1 Basophils % 0.5 Nucleated RBC % 0 Sodium 126 L 126 L Potassium 3.8 4.1 Chloride 96 L 96 L Carbon Dioxide 18 L 19 L Anion Gap 11 10 BUN 28.5 H 27.4 H Creatinine 1.3 1.4 H Est GFR (CKD-EPI)AfAm 45.19 41.31 Est GFR (CKD-EPI)NonAf 38.99 35.65 Random Glucose 101 116 H Serum Osmolality Calcium 9.6 9.6 Phosphorus 2.2 L Magnesium 2.5 H Total Bilirubin 0.3 AST 13 L ALT 16 Alkaline Phosphatase 79 Troponin I Total Protein 6.0 L Albumin 2.9 L TSH 0.32 L Urine Color Urine Appearance Urine pH Ur Specific [place] Urine Protein Urine Glucose (UA) Urine Ketones Urine Blood Urine Nitrite Urine Bilirubin Urine Urobilinogen Ur Leukocyte Esterase Urine WBC (Auto) Urine RBC (Auto) Urine Casts (Auto) U Epithel Cells (Auto) Urine Bacteria (Auto) U Random Total Protein Ur Random Sodium Urine Creatinine Protein/Creatinin Ratio 10/04/19 10/04/19 10/04/19 09:08 12:20 13:04 WBC RBC Hgb Hct MCV MCH MCHC RDW Plt Count MPV Absolute Neuts (auto) Neutrophils % Lymphocytes % Monocytes % Eosinophils % Basophils % Nucleated RBC % Sodium 127 L Potassium 3.7 Chloride 99 Carbon Dioxide 19 L Anion Gap 10 BUN 26.8 H Creatinine 1.3 Est GFR (CKD-EPI)AfAm 45.19 Est GFR (CKD-EPI)NonAf 38.99 Random Glucose 151 H Serum Osmolality 269 L Calcium 9.5 Phosphorus Magnesium Total Bilirubin AST ALT Alkaline Phosphatase Troponin I Total Protein Albumin TSH Urine Color Urine Appearance Urine pH Ur Specific [place] Urine Protein Urine Glucose (UA) Urine Ketones Urine Blood Urine Nitrite Urine Bilirubin Urine Urobilinogen Ur Leukocyte Esterase Urine WBC (Auto) Urine RBC (Auto) Urine Casts (Auto) U Epithel Cells (Auto) Urine Bacteria (Auto) U Random Total Protein Ur Random Sodium 21 L Urine Creatinine Protein/Creatinin Ratio Active Medications Generic Name Dose Route Start Last Admin Trade Name Freq PRN Reason Stop Dose Admin Acetaminophen 650 mg 10/03/19 22:11 Tylenol - PO Q4H PRN PAIN LEVEL 6-10 Docusate Sodium 100 mg 10/05/19 10:00 Colace - PO DAILY HONORIO Heparin Sodium (Porcine) 5,000 unit 10/03/19 22:30 10/04/19 14:19 Heparin - SQ 5,000 unit TID HONORIO Administration Sodium Chloride 1,000 mls @ 42 mls/hr 10/03/19 22:30 10/04/19 02:53 Normal Saline - IV 42 mls/hr ASDIR HONORIO Administration Aztreonam 1 gm/ Dextrose 50 mls @ 100 mls/hr 10/04/19 02:00 10/04/19 09:30 IVPB 10/04/19 18:29 100 mls/hr Q8H-IV HONORIO Administration Protocol Aztreonam 1 gm/ Dextrose 50 mls @ 100 mls/hr 10/05/19 02:00 IVPB Q8H-IV HONORIO Protocol Ondansetron HCl 4 mg 10/03/19 22:00 10/04/19 00:26 Zofran Injection IVPUSH 4 mg Q6H PRN Administration NAUSEA Senna 1 tab 10/04/19 22:00 Senna - PO HS HONORIO ASSESSMENT/PLAN: Patient is a 79 year old female with past medical history of HTN, GERD, HLD, hypercalcemia 2/2 hyperparathyroidism, presented to the ED due to generalized weakness, decreased appetite and urinary symptoms. #JILLIAN -Cr 1.6 on admission, now down to 1.3 -renal US -UA with 1+ SERGIO, Prt/Tosser ratio of 1.6 -urine lytes -Continue IVF -continue to monitor renal function, I&O -Avoid nephrotoxic agents including NSAIDs, contrast. #Hyponatremia -likely multifactorial from poor oral intake, increased free water intake, diuretics -Urine Na, urine osm pending -Continue IV Normal Saline -monitor Na levels q6h. Goal not to exceed Sodium correction of 8mmol/ L within 24 hours. #Hypercalcemia -likely 2/2 hyperparathyroidism -PTH level pending #UTI -urine cultures pending -pending cultures revealed normal cheryle -continue Aztreonam -ID and Urology consulted. #FEN -IV NS @ 42cc/hr -hyponatremia, improving -puree diet #Prophylaxis -Heparin 5000u sq tid Dispo: We will continue to follow the patient. Thank you for this consultative opportunity. Visit type - Emergency Visit Emergency Visit: Yes ED Registration Date: 10/03/19 Care time: The patient presented to the Emergency Department on the above date and was hospitalized for further evaluation of their emergent condition. - New Patient This patient is new to me today: Yes Date on this admission: 10/04/19 - Critical Care Critical Care patient: No ATTENDING PHYSICIAN STATEMENT I saw and evaluated the patient. I reviewed the resident's note and discussed the case with the resident. I agree with the resident's findings and plan as documented. SUBJECTIVE: OBJECTIVE: ASSESSMENT AND PLAN:
[2019-10-04 14:51] VITALS: BMI 40.5
--- NOTE | 2019-10-04 15:37 | PN ---
Progress Note (short form) - Note Progress Note: ID consult dictated imp/reccd imp/reccd hyponatremia history of hypercalcemia- ?meds history of recurrent UTIs- last treated May- saw urologist dr west after this reports chronic vaginal itching and burning thought this meant she had a UTI no fevers no flank pain no suprapubic pain doubt UTI suspect asymptomatic bacteriuria suggest contacting dr west her urologist to obtain details suggest gyne eval d/c antibiotics mulltiple antibiotic allergies- of note she received ceftriaxone in the ED without any side effects management of hyponnatremia and "hypercalcemia" per renal Problem List - Problems (1) Hyponatremia Code(s): E87.1 - HYPO-OSMOLALITY AND HYPONATREMIA (2) Hypercalcemia Code(s): E83.52 - HYPERCALCEMIA (3) Asymptomatic bacteriuria Code(s): R82.71 - BACTERIURIA (4) Allergy to multiple antibiotics Code(s): Z88.1 - ALLERGY STATUS TO OTHER ANTIBIOTIC AGENTS STATUS
--- NOTE | 2019-10-04 16:19 | CONS ---
DATE OF CONSULTATION: DATE OF DICTATION: 10/04/2019 INFECTIOUS DISEASE CONSULTATION REQUESTED BY: The hospitalist service. HISTORY OF PRESENT ILLNESS: This is a 79-year-old woman. She reports that she has a history of UTIs that go back to the summer, to March. She received multiple courses of antibiotics, including LEVAQUIN, which caused her to have some facial swelling. She was seen in the ER here in May for this. She reports after that she was referred to a urologist, Dr. Wisam Alcazar, in June. 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 She had a cystoscopy, the results of which she does not know. She was not given any antibiotics since that time. She reports that she has chronic discomfort, both whether she urinates or not, including an itch and discomfort. She denies any fever or chills. She never has any flank pain. She has no suprapubic pain. She recently was evaluated as an outpatient by her doctor. She was having difficulty eating after she had some teeth removed. She was noted to have a low blood pressure. She was also noted to be hyperkalemic. She was told to drink plenty of fluids, which she started doing. She was noted then to have a low sodium and on Thursday she was told to discontinue her blood pressure medicines, which are lisinopril and hydrochlorothiazide which she has been on for the last year or so. Her blood pressure remained low. She was seen at [facility] and advised admission to the hospital. She came to the ER yesterday, where her blood pressure was 108/66. She was afebrile, with a white count of 10.6. She was noted to have a sodium of 121 and a creatinine of 1.6. She has been receiving some IV hydration with normal saline, and Renal has been asked to see her. I am asked to see her for possible UTI. She has no complaints whatsoever. She received a dose of ceftriaxone last night and was started on aztreonam this morning. PAST MEDICAL HISTORY: Notable for hypertension, GERD, hyperlipidemia. She was recently told she was hypercalcemic. PAST SURGICAL HISTORY: Notable for and left arm surgery. HABITS: She is a former smoker. She stopped smoking 1 month ago, when her beset friend of lung cancer. She is a social drinker. No drug history. SOCIAL HISTORY: She moved to [place] about 8 to 9 years ago because her daughter got and moved to [place]. ALLERGIES: She is allergic to AMOXICILLIN apparently, gets a rash, and LEVOFLOXACIN. MEDICATIONS: She was taking lisinopril/hydrochlorothiazide, which she is currently off, and she is on atorvastatin and vitamin D. REVIEW OF SYSTEMS: She notes generalized weakness but otherwise has no complaints. She has not had any weight loss. She has had no fever or chills, nausea or vomiting. PHYSICAL EXAMINATION: General: she is awake and alert. Vital Signs: Her temperature is 98.2. Pulse is 76. Blood pressure is 105/60. Respiratory rate is 18. She weighs 103 kg. HEENT: She is normocephalic. Her eyes are anicteric. Neck: Supple. Lungs: Clear to auscultation. Heart: Regular rate and rhythm. Abdomen: Soft, nontender. She has no CVA or suprapubic tenderness. Extremities: Without edema. DIAGNOSTIC STUDIES: White count is 7.2, hemoglobin 10.1, platelets 254. BUN is now 26 and creatinine 1.3. Her calcium is 9.5. Liver function tests are normal. Urinalysis has 1+ protein, 1+, blood, 2+ leukocytes, with 41 white cells. Urine osmolality is low at 140. She has had no imaging studies. SUMMARY: This is a 79-year-old woman with hyponatremia, who is having a workup for this, which should include a chest x-ray. She has a history of hypercalcemia, which may be related to medications as since her medications have been held, this seems to be resolved. History of recurrent urinary tract infections per patient but apparently saw urologist and afterwards she has not been treated. She has no fever or flank pain, no suprapubic discomfort. I doubt she has a urinary tract infection and suspect asymptomatic bacteriuria. I am wondering could perhaps she have vaginitis given her complaints? Would discontinue her antibiotics. Suggest gynecological evaluation. She is being evaluated by Renal. She has multiple antibiotic allergies but, of note, she received ceftriaxone in the ER without any side effects. MEAGHAN ESPINOZA M.D. [id number]
--- NOTE | 2019-10-04 17:09 | PN ---
Physical Exam: SUBJECTIVE: Patient seen and examined at the bedside. Patient endorses dysuria, vaginal itching. States she has poor appetite due to difficulty eating because of her missing teeth. Noted that she has some nausea and constipation, no vomiting. Denies cp, sob, abd pain, suprapubic pain, urgency, frequency, headaches, dizziness, lightheadedness, fevers, chills. OBJECTIVE: Vital Signs Period Temp Pulse Resp BP Sys/Giron Pulse Ox Last 24 Hr 97.6 F-98.3 F 73-90 16-20 97-137/56-69 97-98 GENERAL: The patient is awake, alert, and fully oriented, in no acute distress. HEAD: Normal with no signs of trauma. EYES: PERRL, extraocular movements intact, sclera anicteric, conjunctiva clear. ENT: Oropharynx clear without exudates, moist mucous membranes. Missing bottom teeth. LUNGS: Breath sounds equal, clear to auscultation bilaterally, no wheezes, no crackles, no accessory muscle use. HEART: Regular rate and rhythm, S1, S2 without murmur, rub. ABDOMEN: Soft, nontender, nondistended, normoactive bowel sounds, no guarding, no rebound, no masses. EXTREMITIES: 2+ pulses, warm, well-perfused, trace edema. NEUROLOGICAL: Cranial nerves II through XII grossly intact. 5/5 muscle strength bilaterally upper and lower extremities. PSYCH: Normal mood, normal affect. SKIN: Warm, dry, decreased turgor, no rashes or lesions noted. Laboratory Results - last 24 hr 10/03/19 10/03/19 10/03/19 18:03 18:03 18:03 WBC 10.6 H RBC 3.62 Hgb 11.3 Hct 33.6 MCV 92.9 MCH 31.2 MCHC 33.5 RDW 13.6 Plt Count 298 MPV 7.5 D Absolute Neuts (auto) 8.1 H Neutrophils % 76.6 D Lymphocytes % 11.2 D Monocytes % 10.9 H Eosinophils % 0.9 Basophils % 0.4 Nucleated RBC % 0 Sodium 121 L Potassium 4.3 Chloride 91 L Carbon Dioxide 18 L Anion Gap 11 BUN 33.8 H Creatinine 1.6 H Est GFR (CKD-EPI)AfAm 35.15 Est GFR (CKD-EPI)NonAf 30.33 Random Glucose 121 H Serum Osmolality Calcium 9.9 Phosphorus Magnesium 1.1 L Total Bilirubin 0.3 AST 15 ALT 20 Alkaline Phosphatase 92 Troponin I < 0.02 Total Protein 6.9 Albumin 3.3 L TSH Urine Color Urine Appearance Urine pH Ur Specific [place] Urine Protein Urine Glucose (UA) Urine Ketones Urine Blood Urine Nitrite Urine Bilirubin Urine Urobilinogen Ur Leukocyte Esterase Urine WBC (Auto) Urine RBC (Auto) Urine Casts (Auto) U Epithel Cells (Auto) Urine Bacteria (Auto) Urine Osmolality U Random Total Protein Ur Random Sodium Urine Creatinine Protein/Creatinin Ratio 10/03/19 10/04/19 10/04/19 18:03 01:15 02:55 WBC RBC Hgb Hct MCV MCH MCHC RDW Plt Count MPV Absolute Neuts (auto) Neutrophils % Lymphocytes % Monocytes % Eosinophils % Basophils % Nucleated RBC % Sodium 124 L Potassium 4.1 Chloride 96 L Carbon Dioxide 17 L Anion Gap 11 BUN 29.4 H Creatinine 1.3 Est GFR (CKD-EPI)AfAm 45.19 Est GFR (CKD-EPI)NonAf 38.99 Random Glucose 121 H Serum Osmolality Calcium 9.2 Phosphorus Magnesium Total Bilirubin AST ALT Alkaline Phosphatase Troponin I Total Protein Albumin TSH Urine Color Yellow Urine Appearance Cloudy Urine pH 5.5 Ur Specific [place] 1.006 L Urine Protein 1+ H Urine Glucose (UA) Negative Urine Ketones Negative Urine Blood 1+ H Urine Nitrite Negative Urine Bilirubin Negative Urine Urobilinogen 0.2 Ur Leukocyte Esterase 2+ H Urine WBC (Auto) 41 Urine RBC (Auto) 1 Urine Casts (Auto) 4 U Epithel Cells (Auto) 2.9 Urine Bacteria (Auto) 97.5 Urine Osmolality U Random Total Protein 43.7 H Ur Random Sodium Urine Creatinine 28.0 L Protein/Creatinin Ratio 1.6 10/04/19 10/04/19 10/04/19 06:20 06:20 09:08 WBC 7.2 RBC 3.21 L Hgb 10.1 L Hct 29.5 L MCV 91.9 MCH 31.5 MCHC 34.3 RDW 13.5 Plt Count 254 MPV 7.7 Absolute Neuts (auto) 4.7 Neutrophils % 65.8 Lymphocytes % 18.1 D Monocytes % 14.5 H Eosinophils % 1.1 Basophils % 0.5 Nucleated RBC % 0 Sodium 126 L 126 L Potassium 3.8 4.1 Chloride 96 L 96 L Carbon Dioxide 18 L 19 L Anion Gap 11 10 BUN 28.5 H 27.4 H Creatinine 1.3 1.4 H Est GFR (CKD-EPI)AfAm 45.19 41.31 Est GFR (CKD-EPI)NonAf 38.99 35.65 Random Glucose 101 116 H Serum Osmolality Calcium 9.6 9.6 Phosphorus 2.2 L Magnesium 2.5 H Total Bilirubin 0.3 AST 13 L ALT 16 Alkaline Phosphatase 79 Troponin I Total Protein 6.0 L Albumin 2.9 L TSH 0.32 L Urine Color Urine Appearance Urine pH Ur Specific [place] Urine Protein Urine Glucose (UA) Urine Ketones Urine Blood Urine Nitrite Urine Bilirubin Urine Urobilinogen Ur Leukocyte Esterase Urine WBC (Auto) Urine RBC (Auto) Urine Casts (Auto) U Epithel Cells (Auto) Urine Bacteria (Auto) Urine Osmolality U Random Total Protein Ur Random Sodium Urine Creatinine Protein/Creatinin Ratio 10/04/19 10/04/19 10/04/19 09:08 12:20 12:20 WBC RBC Hgb Hct MCV MCH MCHC RDW Plt Count MPV Absolute Neuts (auto) Neutrophils % Lymphocytes % Monocytes % Eosinophils % Basophils % Nucleated RBC % Sodium Potassium Chloride Carbon Dioxide Anion Gap BUN Creatinine Est GFR (CKD-EPI)AfAm Est GFR (CKD-EPI)NonAf Random Glucose Serum Osmolality 269 L Calcium Phosphorus Magnesium Total Bilirubin AST ALT Alkaline Phosphatase Troponin I Total Protein Albumin TSH Urine Color Urine Appearance Urine pH Ur Specific [place] Urine Protein Urine Glucose (UA) Urine Ketones Urine Blood Urine Nitrite Urine Bilirubin Urine Urobilinogen Ur Leukocyte Esterase Urine WBC (Auto) Urine RBC (Auto) Urine Casts (Auto) U Epithel Cells (Auto) Urine Bacteria (Auto) Urine Osmolality 140 L U Random Total Protein Ur Random Sodium 21 L Urine Creatinine Protein/Creatinin Ratio 10/04/19 13:04 WBC RBC Hgb Hct MCV MCH MCHC RDW Plt Count MPV Absolute Neuts (auto) Neutrophils % Lymphocytes % Monocytes % Eosinophils % Basophils % Nucleated RBC % Sodium 127 L Potassium 3.7 Chloride 99 Carbon Dioxide 19 L Anion Gap 10 BUN 26.8 H Creatinine 1.3 Est GFR (CKD-EPI)AfAm 45.19 Est GFR (CKD-EPI)NonAf 38.99 Random Glucose 151 H Serum Osmolality Calcium 9.5 Phosphorus Magnesium Total Bilirubin AST ALT Alkaline Phosphatase Troponin I Total Protein Albumin TSH Urine Color Urine Appearance Urine pH Ur Specific [place] Urine Protein Urine Glucose (UA) Urine Ketones Urine Blood Urine Nitrite Urine Bilirubin Urine Urobilinogen Ur Leukocyte Esterase Urine WBC (Auto) Urine RBC (Auto) Urine Casts (Auto) U Epithel Cells (Auto) Urine Bacteria (Auto) Urine Osmolality U Random Total Protein Ur Random Sodium Urine Creatinine Protein/Creatinin Ratio Active Medications Generic Name Dose Route Start Last Admin Trade Name Freq PRN Reason Stop Dose Admin Acetaminophen 650 mg 10/03/19 22:11 Tylenol - PO Q4H PRN PAIN LEVEL 6-10 Docusate Sodium 100 mg 10/05/19 10:00 Colace - PO DAILY HONORIO Heparin Sodium (Porcine) 5,000 unit 10/03/19 22:30 10/04/19 14:19 Heparin - SQ 5,000 unit TID HONORIO Administration Sodium Chloride 1,000 mls @ 42 mls/hr 10/03/19 22:30 10/04/19 02:53 Normal Saline - IV 42 mls/hr ASDIR HONORIO Administration Aztreonam 1 gm/ Dextrose 50 mls @ 100 mls/hr 10/05/19 02:00 IVPB Q8H-IV HONORIO Protocol Ondansetron HCl 4 mg 10/03/19 22:00 10/04/19 00:26 Zofran Injection IVPUSH 4 mg Q6H PRN Administration NAUSEA Senna 1 tab 10/04/19 22:00 Senna - PO HS HONORIO ASSESSMENT/PLAN: Chasity Sarabia is a 79 year old woman with a past medical history of HTN, GERD, HLD , Tobacco use and Hypercalcemia 2/2 hyperparathyroidism symptomatic hyponatremia and dysuria. Hx of recurrent UTI - UA positive and patient has dysuria - ID consulted, recs appreciated, doubting UTI will stop abx - will obtain records from patient's urologist, Dr. De La Torre to assess what results of cystoscopy are - Urology Dr Yepez consulted - urine culture pending - abx stopped - BARTENDER consulted, to assess for alternative sources of infection Hyponatremia - improving - serum osms 269 true hyponatremia - urine sodium 21, urine osms 141, likely in the setting of dehydration - FeNa 0.8%, pre-renal - IV NS at 42cc/hr - fluid restriction to 1L/daily - continue to monitor sodium - nephrology consulted, recs appreciated - HCTZ stopped Hypomagnesemia - repleted - continue to monitor Hypoalbuminemia - likely in setting of poor oral intake - consult online banking specialist - puree diet due to dentition issue CKD - according to records, has hx of CKD with left renal atrophy - PTH pending, records from [facility] noting PTH elevated, and has hx of primary hyperparathyroidism - continue to hydrate and observe CRE - nephrology consulted HTN - hold home medications as patient hypotensive, can resume if patient become hypertensive HLD - continue home lipitor Hx of smoking - low dose CT scan DVT - hep 5000 units subq tid FEN - NS at 42cc/hr - continue to monitor electrolytes and replete as necessary, hyponatremia and hypomagnesemia noted and repleted - puree diet Dispo - continue to monitor on Med-surg Visit type - Emergency Visit Emergency Visit: Yes ED Registration Date: 10/03/19 Care time: The patient presented to the Emergency Department on the above date and was hospitalized for further evaluation of their emergent condition. - New Patient This patient is new to me today: Yes Date on this admission: 10/04/19 - Critical Care Critical Care patient: No
--- NOTE | 2019-10-04 17:34 | PN ---
Teaching Attending Note Name of Resident: Tosin Harris ATTENDING PHYSICIAN STATEMENT I saw and evaluated the patient. I reviewed the resident's note and discussed the case with the resident. I agree with the resident's findings and plan as documented. Nephrology Pt is a 79 year old female with pmhx of htn, gerd, hyperparathyroidism, and tobacco use who presented with malaise. She was found to be hyponatremic and I was called to evaluate her. She was on a thiazide. She complains of decrease po intake. pmhx htn gerd hyperparathyroidism allergies amoxicillin levo, augmentin social hx extensive smoking hx family hx non contrib Current Medications Generic Name Dose Route Start Last Admin Trade Name Freq PRN Reason Stop Dose Admin Acetaminophen 650 mg 10/03/19 22:11 Tylenol - PO Q4H PRN PAIN LEVEL 6-10 Docusate Sodium 100 mg 10/05/19 10:00 Colace - PO DAILY HONORIO Heparin Sodium (Porcine) 5,000 unit 10/03/19 22:30 10/04/19 14:19 Heparin - SQ 5,000 unit TID HONORIO Administration Sodium Chloride 1,000 mls @ 42 mls/hr 10/03/19 22:30 10/04/19 02:53 Normal Saline - IV 42 mls/hr ASDIR HONORIO Administration Aztreonam 1 gm/ Dextrose 50 mls @ 100 mls/hr 10/05/19 02:00 IVPB Q8H-IV HONORIO Protocol Ondansetron HCl 4 mg 10/03/19 22:00 10/04/19 00:26 Zofran Injection IVPUSH 4 mg Q6H PRN Administration NAUSEA Senna 1 tab 10/04/19 22:00 Senna - PO HS HONORIO Laboratory Tests 10/03/19 10/04/19 10/04/19 18:03 01:15 06:20 Hgb 11.3 10.1 L Sodium 124 L Creatinine Serum Osmolality Calcium Albumin PTH Intact Urine Osmolality Ur Random Sodium 10/04/19 10/04/19 10/04/19 06:20 06:20 09:08 Hgb Sodium 126 L 126 L Creatinine 1.3 1.4 H Serum Osmolality Calcium Albumin 2.9 L PTH Intact Pending Urine Osmolality Ur Random Sodium 10/04/19 10/04/19 10/04/19 09:08 12:20 12:20 Hgb Sodium Creatinine Serum Osmolality 269 L Calcium Albumin PTH Intact Urine Osmolality 140 L Ur Random Sodium 21 L 10/04/19 13:04 Hgb Sodium 127 L Creatinine 1.3 Serum Osmolality Calcium 9.5 Albumin PTH Intact Urine Osmolality Ur Random Sodium cardio s1s2 pulm clear GI soft, obese ext neg edema neuro awake Impression 1. hyponatremia 2. hyperparathyroidism 3. htn 4. gerd 5. obesity 6. hypercalcemia Plan - follow cxr - get low dose ct scan as she was a smoker - urine osm low and urine osm low - sodium improving with saline - d/c thiazide - monitor labs daily
[2019-10-04 18:23] LABS: BLOOD UREA NITROGEN 25.9 mg/dL (7-18); CALCIUM 10.1 mg/dL (8.5-10.1); CREATININE 1.3 mg/dL (0.55-1.3); POTASSIUM 4.2 mmol/L (3.5-5.1)
--- NOTE | 2019-10-04 19:12 | PN ---
Teaching Attending Note Name of Resident: Lori Gomez ATTENDING PHYSICIAN STATEMENT I saw and evaluated the patient. I reviewed the resident's note and discussed the case with the resident. I agree with the resident's findings and plan as documented. SUBJECTIVE: No fever or chills. No GARCIAS . No cp . feels tiered, but stronger today OBJECTIVE: NAD ,MMM, missing some lower teeth Cv: RRR, Lungs: CTAB ABd: soft, NT, Nd M< NL BS Ext : no edema , very dry skin ASSESSMENT AND PLAN: 79 y/o lady with h/o HTN, GERD, hyperlipidemia, Possible recent diagnosis of hyperparathyroidism, and atrophic kideny and other medical problems who presented from urgent care due to hypotension and diagnosed with hyponatremia 1- Hypotonic Hyponatremia: given poor po intake, and nausea/vomiting , this is likely due to volume depletion and poor solute intake. responded appropriately to NS. was hypotensive FenA 0.8, urine NA noted and osmolality noted. do not suspect SIADH . - avoid diuretics - cont IVF - puree diet to help with po intake given missing teeth. - CT ordered to r/o lung mass 2- Asymptomatic pyuria : urine cx pending . agree with monitoring off Abx even if urine cx + 3- Recent diagnosis of hypercalemia: part of the records were obtained. PTH 144. - possibly has hyperparathyroidism with the low phos - follow rest of records. - cont hydration . - Corrected ca here is 10.5 - f/u with her transportation driver after dc 4- hypophosphatemia: replete 5- heparin sq . fro DVT px
[2019-10-04] MEDS ORDERED: NAPH,MB-DB/K PH,MBDB POWDER PACKET PO ONE (19:17)
--- NOTE | 2019-10-04 19:59 | PN ---
Progress Note (short form) - Note Progress Note: patient is [facility] patient, she sees medical & director of services providers with [facility] . please contact [facility] in the hospital for director of services consult
[2019-10-04 21:26] LABS: BLOOD UREA NITROGEN 25.5 mg/dL (7-18); CALCIUM 10.3 mg/dL (8.5-10.1); CREATININE 1.4 mg/dL (0.55-1.3); POTASSIUM 4.7 mmol/L (3.5-5.1)
[2019-10-04] MEDS ORDERED: SENNOSIDES 8.6MG TABLET (FP) PO SCH (22:00)
[2019-10-05] MEDS ORDERED: AZTREONAM 1 GM in DEXTROSE 5%-WATER - 50 ML IVPB SCH (02:00)
[2019-10-05] MEDS: HEPARIN NA (PORCINE) 5,000 UNITS/ML 1ML VIAL SQ SCH ×2 (06:06→14:43)
[2019-10-05 07:33] LABS: BASO % 0.7 % (0-2.0); EOS % 2.2 % (0-4.5); HEMOGLOBIN 10.2 GM/dL (10.7-15.3); LYMPH % 29.3 % (8-40); MCH 31.9 pg (25.7-33.7); MCHC 34.1 g/dl (32.0-36.0); MEAN CELL VOLUME 93.5 fl (80-96); MEAN PLT VOLUME 7.9 fl (7.5-11.1); MONO % 15.8 % (3.8-10.2); PLATELET COUNT 255 K/MM3 (134-434); RBC 3.21 M/mm3 (3.60-5.2); RDW 13.8 % (11.6-15.6); WHITE BLOOD COUNT 5.6 K/mm3 (4.0-10.0)
[2019-10-05 08:05] LABS: BLOOD UREA NITROGEN 21.4 mg/dL (7-18); CALCIUM 9.6 mg/dL (8.5-10.1); CREATININE 1.2 mg/dL (0.55-1.3); MAGNESIUM 1.8 mg/dL (1.8-2.4); PHOSPHOROUS 2.9 mg/dL (2.5-4.9); POTASSIUM 3.9 mmol/L (3.5-5.1)
[2019-10-05] MEDS ORDERED: MAGNESIUM OXIDE 400 MG TABLET (FP) PO ONE (08:26)
[2019-10-05] MEDS ORDERED: PT OWN MED DRAWER 7, Y5N ONE (09:51)
[2019-10-05] MEDS ORDERED: DOCUSATE SODIUM 100 MG CAPSULE (FP) PO SCH (10:00)
[2019-10-05] MEDS: SODIUM CHLORIDE 1,000 ML IV SCH (10:09)
--- NOTE | 2019-10-05 11:46 | PN ---
Teaching Attending Note ATTENDING PHYSICIAN STATEMENT I saw and evaluated the patient. I reviewed the resident's note and discussed the case with the resident. I agree with the resident's findings and plan as documented. SUBJECTIVE: OBJECTIVE: ASSESSMENT AND PLAN:
--- NOTE | 2019-10-05 13:18 | PN ---
Progress Note, Physician History of Present Illness: Pt seen and examined at bedside. She is awake and alert. She denies shortness of breath. - Current Medication List Current Medications: Active Medications Acetaminophen (Tylenol -) 650 mg PO Q4H PRN PRN Reason: PAIN LEVEL 6-10 Docusate Sodium (Colace -) 100 mg PO DAILY [facility] Last Admin: 10/05/19 09:52 Dose: 100 mg Heparin Sodium (Porcine) (Heparin -) 5,000 unit SQ TID HONORIO Last Admin: 10/05/19 06:06 Dose: 5,000 unit Sodium Chloride (Normal Saline -) 1,000 mls @ 42 mls/hr IV ASDIR HONORIO Last Admin: 10/05/19 10:09 Dose: 42 mls/hr Ondansetron HCl (Zofran Injection) 4 mg IVPUSH Q6H PRN PRN Reason: NAUSEA Last Admin: 10/04/19 00:26 Dose: 4 mg Senna (Senna -) 1 tab PO HS HONORIO Last Admin: 10/04/19 21:57 Dose: 1 tab - Objective Vital Signs: Vital Signs Temperature 97.4 F L 10/05/19 11:19 Pulse Rate 77 10/05/19 11:19 Respiratory Rate 15 10/05/19 11:19 Blood Pressure 104/72 10/05/19 11:19 O2 Sat by Pulse Oximetry (%) 97 10/05/19 09:00 Constitutional: Yes: Calm Eyes: Yes: Conjunctiva Clear HENT: Yes: Atraumatic Neck: Yes: Supple Cardiovascular: Yes: S1, S2 Respiratory: Yes: CTA Bilaterally Gastrointestinal: Yes: Soft Genitourinary: Yes: WNL Edema: No Neurological: Yes: Oriented Psychiatric: Yes: Oriented Labs: CBC, BMP 10/05/19 06:48 10/05/19 06:48 Assessment/Plan Current Medications Generic Name Dose Route Start Last Admin Trade Name Freq PRN Reason Stop Dose Admin Acetaminophen 650 mg 10/03/19 22:11 Tylenol - PO Q4H PRN PAIN LEVEL 6-10 Docusate Sodium 100 mg 10/05/19 10:00 10/05/19 09:52 Colace - PO 100 mg DAILY HONORIO Administration Heparin Sodium (Porcine) 5,000 unit 10/03/19 22:30 10/05/19 06:06 Heparin - SQ 5,000 unit TID HONORIO Administration Sodium Chloride 1,000 mls @ 42 mls/hr 10/03/19 22:30 10/05/19 10:09 Normal Saline - IV 42 mls/hr ASDIR HONORIO Administration Ondansetron HCl 4 mg 10/03/19 22:00 10/04/19 00:26 Zofran Injection IVPUSH 4 mg Q6H PRN Administration NAUSEA Senna 1 tab 10/04/19 22:00 10/04/19 21:57 Senna - PO 1 tab HS HONORIO Administration Impression 1. hyponatremia 2. hyperparathyroidism 3. htn 4. gerd 5. obesity 6. hypercalcemia 7. lung nodule Plan - sodium improving - etiology of hyponatremia likely from thiazide - lung nodule will need follow up - pt sees endocrine for hyperpara and was recommend to have surgery, she will follow as outpt - bp stable off of meds
[2019-10-05 14:54] VITALS: BP 100/54; PULSE 79; TEMP 98.5
--- NOTE | 2019-10-05 16:53 | DS ---
Physical Exam: SUBJECTIVE: Patient seen and examined at the bedside. Stated that she feels very well. Endorsed good appetite. Denied cp, sob, abd pain, cough, n/v/c/d, dysuria, hematuria, vaginal itching, discharge, headaches, dizziness, lightheadedness, numbness, tingling, confusion, gait instability. OBJECTIVE: Vital Signs Period Temp Pulse Resp BP Sys/Giron Pulse Ox Last 24 Hr 97.4 F-98.5 F 77-97 15-18 100-111/47-74 97-97 PHYSICAL EXAM GENERAL: The patient is awake, alert, and fully oriented, in no acute distress. HEAD: Normal with no signs of trauma. EYES: PERRL, extraocular movements intact, sclera anicteric, conjunctiva clear. ENT: Oropharynx clear without exudates, moist mucous membranes. Missing bottom teeth. LUNGS: Breath sounds equal, clear to auscultation bilaterally, no wheezes, no crackles, no accessory muscle use. HEART: Regular rate and rhythm, S1, S2 without murmur, rub. ABDOMEN: Soft, nontender, nondistended, normoactive bowel sounds, no guarding, no rebound, no masses. EXTREMITIES: 2+ pulses, warm, well-perfused, trace edema. NEUROLOGICAL: Cranial nerves II through XII grossly intact. 5/5 muscle strength bilaterally upper and lower extremities. PSYCH: Normal mood, normal affect. SKIN: Warm, dry, decreased turgor, no rashes or lesions noted. LABS Laboratory Results - last 24 hr 10/04/19 10/04/19 10/04/19 06:20 16:15 20:30 WBC RBC Hgb Hct MCV MCH MCHC RDW Plt Count MPV Absolute Neuts (auto) Neutrophils % Lymphocytes % Monocytes % Eosinophils % Basophils % Nucleated RBC % Sodium 129 L 129 L Potassium 4.2 4.7 Chloride 99 100 Carbon Dioxide 20 L 21 Anion Gap 9 9 BUN 25.9 H 25.5 H Creatinine 1.3 1.4 H Est GFR (CKD-EPI)AfAm 45.19 41.31 Est GFR (CKD-EPI)NonAf 38.99 35.65 Random Glucose 89 101 Calcium 10.1 10.3 H Phosphorus Magnesium PTH Intact 94 H 10/05/19 10/05/19 06:48 06:48 WBC 5.6 RBC 3.21 L Hgb 10.2 L Hct 30.0 L MCV 93.5 MCH 31.9 MCHC 34.1 RDW 13.8 Plt Count 255 MPV 7.9 Absolute Neuts (auto) 2.9 Neutrophils % 52.0 D Lymphocytes % 29.3 D Monocytes % 15.8 H Eosinophils % 2.2 D Basophils % 0.7 Nucleated RBC % 0 Sodium 134 L Potassium 3.9 Chloride 105 Carbon Dioxide 20 L Anion Gap 9 BUN 21.4 H Creatinine 1.2 Est GFR (CKD-EPI)AfAm 49.78 Est GFR (CKD-EPI)NonAf 42.95 Random Glucose 84 Calcium 9.6 Phosphorus 2.9 Magnesium 1.8 PTH Intact HOSPITAL COURSE: Chasity Sarabia is a 79 year old woman with a past medical history of HTN, GERD, HLD , Tobacco use and Hypercalcemia 2/2 hyperparathyroidism symptomatic hyponatremia and dysuria. Patient was seen by ID who did not note that the patient had symptoms of UTI and antibiotics that were started for patient were stopped. Cultures showed less than [id number] bacteria and patient was asymptomatic. Cystoscopy results were obtained from patient's urologist, Dr. 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 Patient was advised to follow up with her urologist in the outpatient clinic. Due to intermittent complaints of vaginal itching patient was recommended to follow up with her economic research analyst. Dr. Lind was called and advised that the patient can be followed up outpatient and does not need to remain inpatient. Patient had hyponatremia on admission at 121 and urine and blood studies noted that this was likely due to dehydration and diuretic use. Patient was treated with fluid restriction, IV fluids, and adequate oral intake. Patient was seen by nephrology who guided hyponatremia treatment and advised the patient to follow up outpatient. Was advised to stop taking HCTZ. Patient with a history of left atrophied kidney which was confirmed with renal U /S. Patient with history of hyperparathyroidism which the patient will follow up with her leg assembler. Had elevated PTH on this admission. Patient had low dose CT due to her history of smoking which noted tiny juxtapleural nodule in the R middle lobe 2mm, atelectasis in the left lung base and lingular segment of L upper lobe, lymph node, minimal calcification of coronary arteries. Patient was advised to follow up with pulmonology and her PCP for these findings. Patient was advised of the plan to stop taking hydrochlorothiazide and to continue on lisinopril, not drink excessive amounts of water, maintain adequate diet, and to follow up with her PCP, economic research analyst, urologist, procurement buyer, audiovisual equipment operator, and leg assembler. Patient was in agreement with the plan and reiterated it. Patient was discharged in stable medical condition. 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 You were treated with fluids and limiting your water intake. You were seen by the procurement buyer (kidney doctor ) who recommending stopping your hydrochlorothiazide, limiting your water intake , and to follow up with a procurement buyer in the outpatient clinic. You were seen by an infectious disease doctor who did not believe you had an active infection in your urine. You are advised to follow up with your primary care doctor. MEDICATIONS STOP taking combination lisinopril-hydrochlorothiazide. START taking lisinopril 10mg once daily. Continue taking all of your home medications as prescribed to you. REFERRALS Please follow up with your primary cared physician, Dr. Akilah Hanson, within 1 week. Please follow up with your urologist, Dr. Richard Melo, within 1 week. Please follow up with your economic research analyst, if you do not have one, please follow with Dr. Savanah Jean, within 1 week. Please follow up with your leg assembler, Dr. Katie Young, within 1 week. Please follow up with the procurement buyer, Dr. Robin Mayer, within 1 week. Please follow up with the audiovisual equipment operator, Dr. Dov Saldana, within 1 week. SPECIAL INSTRUCTIONS Please have repeat BMP blood levels drawn at your primary care office within 1 week. You were found to have low sodium in your blood. You are advised not to consume too much water and eat an adequate diet. You had a CT scan performed which showed a nodule in your right middle lobe and changes in your left lung. You are advised to follow up with a audiovisual equipment operator ( lung doctor). You had a kidney ultrasound which confirmed that you have an atrophic left kidney that you were aware about. Continue to follow up with your urologist. Continue to follow up with your leg assembler for your history of hyperparathyroidism. If you have any symptoms of dizziness, lightheadedness, increased painful urination, blood in the urine, increased vaginal itching, fevers, chest pain, shortness of breath, or any other general feelings of unwellness, please call 911 or go to your nearest emergency room. Referrals: Savanah Jean MD [Staff Physician] - 1 Week Dov Saldana MD [Staff Physician] - 1 Week Richard De La Torre MD [Staff Physician] - 1 Week Katie Young [Non Staff, Medical] - 1 Week Robin Mayer MD [Staff Physician] - 1 Week Akilah Perez [Non Staff, Medical] - 1 Week Disposition: HOME - Home Medications Comprehensive Discharge Medication List: Ambulatory Orders Atorvastatin Calcium 20 mg PO DAILY 10/03/19 Benzonatate 200 mg PO TID 10/03/19 Ergocalciferol (Vitamin D2) [Vitamin D2] 2,000 unit PO DAILY 10/03/19 Ondansetron [Zofran -] 4 mg PO Q6H 10/03/19 Lisinopril [Prinivil] 10 mg PO DAILY #30 tablet 10/05/19 This patient is new to me today: No Emergency Visit: Yes ED Registration Date: 10/03/19 Care time: The patient presented to the Emergency Department on the above date and was hospitalized for further evaluation of their emergent condition. Critical Care patient: No - Discharge Referral Referred to [facility] No
== END 2019-10-05 17:32 | disposition home or self-care (01) | DRG 641 ==
LOC: JER 17:17 → JERBED 19:06 → J7W 10-04 01:48
PROVIDERS: ADMIT Internal Medicine; ATTEND Internal Medicine
DX: E87.1 Hypo-osmolality and hyponatremia (principal); Z68.41 Body mass index [BMI] 40.0-44.9, adult; I10 Essential (primary) hypertension; N30.80 Other cystitis without hematuria; E78.5 Hyperlipidemia, unspecified; E83.52 Hypercalcemia; R62.7 Adult failure to thrive; E86.0 Dehydration; R73.9 Hyperglycemia, unspecified; N26.1 Atrophy of kidney (terminal); E83.39 Other disorders of phosphorus metabolism; E83.42 Hypomagnesemia; K21.9 Gastro-esophageal reflux disease without esophagitis; E88.09 Other disorders of plasma-protein metabolism, not elsewhere classified; E66.01 Morbid (severe) obesity due to excess calories; I12.9 Hypertensive chronic kidney disease with stage 1 through stage 4 chronic kidney disease, or unspecified chronic kidney disease; N18.9 Chronic kidney disease, unspecified; E21.3 Hyperparathyroidism, unspecified; R91.1 Solitary pulmonary nodule; T50.2X5A Adverse effect of carbonic-anhydrase inhibitors, benzothiadiazides and other diuretics, initial encounter
CPT/HCPCS: 36415; 71046-TC-FY; 71250-TC; 76775-TC; 80048; 80053; 81003; 82570; 83735; 83930; 83935; 83970; 84100; 84156; 84300; 84443; 84484; 85025; 87086; 87186; 93005; 93010; 97116-GP; 97162-GP; 99284-25; J1644; J7030